=== PATIENT | male | born 1960 | race Hispanic/Latino ===

== ENCOUNTER 2017-11-14 12:52 | Inpatient (IN) | payer OTHER ==
[~2017-11-14] VITALS: Ht 175.3 cm; Wt 90.3 kg
[~2017-11-14 12:52] MED LIST: MOBIC15 M1 PO; PERCOCET 5-3251 EACH PO
[2017-11-14 13:26] LABS: ABSOLUTE BASOPHIL COUNT 0.1 /CUMM (0.0-0.2); ABSOLUTE EOSINOPHIL COUNT 0.1 /CUMM (0.0-0.7); ABSOLUTE GRANULOCYTE CT 4.8 /CUMM (1.4-6.5); ABSOLUTE LYMPH COUNT 2.6 /CUMM (1.2-3.4); ABSOLUTE MONOCYTE COUNT 0.6 /CUMM (0.10-0.60); BASOPHIL % 0.7 % (0.0-2.0); EOSINOPHIL % 1.3 % (0-5); GRANULOCYTE % 59.1 % (42.2-75.2); MEAN CORPUSCULAR HGB 23.3 PG (27.0-31.0); MEAN CORPUSCULAR HGB CONC 32.1 G/DL (33.0-37.0); MEAN CORPUSCULAR VOLUME 72.6 FL (80.0-94.0); MEAN PLATELET VOLUME 8.8 FL (7.4-10.4); PLATELET COUNT 239 /CUMM (130-400); RBC DISTRIBUTION WIDTH 14.9 % (11.5-14.5); WHITE BLOOD CELL COUNT 8.1 /CUMM (4.8-10.8)
--- NOTE | 2017-11-14 13:37 | RADIOLOGY REPORT ---
EXAMINATION: XR CHEST CLINICAL INFORMATION: Chest pain. COMPARISON: Chest x-ray dated 04/05/2016. TECHNIQUE: 2 views of the chest were obtained. FINDINGS: The cardiomediastinal silhouette is within normal limits in size. Lungs bilaterally are symmetrically expanded and clear. No focal consolidation, effusion or pneumothorax is seen. Bony structures are unremarkable. IMPRESSION: Unchanged appearance of the chest with no acute cardiopulmonary process seen.
--- NOTE | 2017-11-14 16:00 | ED CARDIAC/CP/PALPITATIONS ---
History of Present Illness General Chief Complaint: Chest Pain Stated Complaint: LEFT ARM STIFFNESS/NUMBNESS,"TINGLES AROUND HEART" Source: patient Exam Limitations: no limitations Vital Signs & Intake/Output Vital Signs & Intake/Output Vital Signs Date Time Temp Pulse Resp B/P B/P Pulse O2 O2 Flow FiO2 Mean Ox Delivery Rate 11/15 2053 80 18 180/100 11/15 1827 188/108 11/15 1741 79 210/110 11/15 1730 210/110 11/15 1424 98.4 77 20 180/96 97 Room Air 11/15 1041 58 168/100 11/15 0800 96 Room Air 11/15 0746 67 182/100 11/15 0616 98.1 60 22 186/100 96 11/15 0030 73 172/82 11/15 0014 71 186/88 11/15 0007 67 178/88 11/14 2258 98.3 86 22 184/110 97 Room Air 11/14 2250 Room Air 11/14 2223 81 18 180/86 99 Room Air 11/14 2110 69 20 180/100 100 Room Air ED Intake and Output 11/15 0000 11/14 1200 Intake Total Output Total Balance Patient 202 lb Weight Weight Bed scale Measurement Method Allergies Coded Allergies: NO KNOWN ALLERGIES (04/05/16) Reconcile Medications Ibuprofen 800 MG TABLET 1 TAB PO TID PRN WRIST PAIN (Reported) Lisinopril 40 MG TABLET 1 TAB PO DAILY HTN (Reported) Metformin HCl 1,000 MG TABLET 1 TAB PO BID DM (Reported) Triage Note: PT TO ED WITH C/O LEFT ARM NUMBNESS/TINGLING AND LEFT SIDED CP BEGINNING APPROX 10 AM TODAY. DENIES SOB. NEURO CHECK INTACT IN TRIAGE. INOCENCIOATTMilagros NEGATIVE. LUISITO STONE IN TRIAGE FOR INITIAL EVAL. Triage Nurses Notes Reviewed? yes Onset: Abrupt Duration: hour(s):, intermittent Timing: recent history Quality/Severity: moderate, sharp Radiation: no radiation Activities at Onset: none HPI: 57-year-old male comes into the emergency room for further evaluation of left- sided chest pain rating down his left arm with some associated tingling. Symptoms began this morning and has been intermittent all day. Patient reports that the chest pain is worse with exertion. Denies any cough. Denies any fever chills vomiting. Worse with movement at times. Patient reports that he has had this pain similarly in the past on and off but today was much more severe in nature. (Sergio Ackerman) Past History Travel History Traveled to [place] past 21 day No Medical History Any Pertinent Medical History? see below for history Cardiovascular: hypertension Respiratory: asthma Surgical History Surgical History: non-contributory Psychosocial History What is your primary language Frisian Tobacco Use: Current Daily Use Daily Tobacco Use Amount/Type: => 5 Cigarettes daily Family History Hx Contributory? No (Sergio Ackerman) Review of Systems Review of Systems Constitutional: Reports: no symptoms. EENTM: Reports: no symptoms. Respiratory: Reports: no symptoms. Cardiovascular: Reports: see HPI. GI: Reports: no symptoms. Genitourinary: Reports: no symptoms. Musculoskeletal: Reports: no symptoms. Skin: Reports: no symptoms. Neurological/Psychological: Reports: no symptoms. Hematologic/Endocrine: Reports: no symptoms. Immunologic/Allergic: Reports: no symptoms. All Other Systems: Reviewed and Negative (Sergio Ackerman) Physical Exam Physical Exam General Appearance: well developed/nourished, alert, awake, mild distress Head: atraumatic, normal appearance Eyes: Bilateral: normal appearance. Ears, Nose, Throat: normal ENT inspection, hearing grossly normal Neck: normal inspection Respiratory: normal breath sounds, no respiratory distress Cardiovascular: regular rate/rhythm Back: normal inspection Extremities: normal inspection Neurologic/Psych: awake, alert, oriented x 3 Skin: intact, normal color Core Measures ACS in differential dx? Yes CVA/TIA Diagnosis No Sepsis Present: No Sepsis Focused Exam Completed? No (Sergio Ackerman) Progress Differential Diagnosis: AMI, aortic dissection, costochondritis, musculoskeletal pain, myocarditis, pancreatitis, pericarditis, pneumonia, pneumothorax, pulmonary embolism, unstable angina Plan of Care: Orders Procedure Date/time Status Heart Healthy Diet 11/16 B Active CBC WITHOUT DIFFERENTIAL 11/16 599 Active BASIC ELECTROLYTES PLUS BUN&CR 11/16 599 Active Heart Healthy Diet 11/15 L Complete EKG 11/15 1300 Active ECHOCARDIOGRAM 11/16 799 Active TOTAL IRON BINDING CAPACITY 11/15 626 Complete LDH (LACT ACID DEHYDROGENASE) 11/15 626 Complete FERRITIN 11/15 626 Complete SERUM IRON 11/15 626 Complete TSH REFLEX 11/15 599 Complete MAGNESIUM 11/15 599 Complete LIPID PANEL 07/31 0600 Complete HAPTOGLOBIN 11/15 0600 Active GLYCOSYLATED HGB 11/15 0600 Complete CBC WITHOUT DIFFERENTIAL 11/15 0600 Complete BASIC ELECTROLYTES PLUS BUN&CR 11/15 0600 Complete URINE DRUGS OF ABUSE 11/15 0306 Active TROPONIN LEVEL 11/15 0000 Complete EKG 11/15 0000 Active Change service to 11/15 UNK Active Lab Add-on Test 11/15 UNK Active Hemoccult 11/15 UNK Active STRESS TEST W/NUCLEAR IMAGING 11/15 UNK Active Pathway - chart 11/14 2312 Active House Staff 11/14 2312 Active Weight 11/14 2242 Active Vital Signs 11/14 2242 Active Teach/Educate 11/14 224 Active Pain Treatment and Response 11/14 224 Active Nutritional Intake, Monitor 11/14 2241 Active Isolation 11/14 2241 Active Intake & Output 11/14 2241 Active Patient Care Conference 11/14 2241 Active Activity/Ambulation 11/14 224 Active FingerStick- Glucose 11/14 2221 Active VTE Mechanical Prophylaxis 11/14 UNK Active Current Medications Sig/Brittany Start time Last Medication Dose Stop Time Status Admin Hydralazine HCl 25 MG DAILY 11/16 09 AC (Apresoline) Omeprazole 20 MG DAILY AC 11/16 0700 AC (Prilosec) Labetalol HCl 200 MG BID 11/15 2100 AC 11/15 (Trandate-Normodyne 2054 200MG Tab) Hydralazine HCl 10 MG ONCE ONE 11/15 1730 CAN (Apresoline) 11/15 1731 Atorvastatin Calcium 40 MG 1700 11/15 1700 AC 11/15 (Lipitor) 1701 Albuterol Sulfate 2 PUF Q4 11/15 1000 AC 11/15 (Ventolin) 1043 Amlodipine Besylate 10 MG DAILY 11/15 0900 AC 11/15 (Norvasc) 1041 Aspirin 81 MG DAILY 11/15 0900 AC 11/15 (Aspirin) 0745 Lisinopril 40 MG DAILY 11/15 0900 AC 11/15 (Prinivil) 0746 Tiotropium [place] 1 PUF DAILY 11/15 0900 AC 11/15 (Spiriva) 1041 Heparin Sodium 5,000 UNIT Q8 11/15 0600 AC 11/15 (Porcine) 2101 Acetaminophen 1,000 MG Q6P PRN 11/14 2315 AC (Ofirmev) Laboratory Tests 11/15/17 0627: Anion Gap 11, Estimated GFR > 60, BUN/Creatinine Ratio 13.6, Hemoglobin A1c 8.4 H, Magnesium 2.0, Iron 189 H, TIBC 336, Ferritin 68.7, Lactate Dehydrogenase 425, Triglycerides 165 H, Cholesterol 219 H, LDL Cholesterol, Calc 140 H, HDL Cholesterol 46, Cholesterol/HDL Ratio 5 H, TSH &T3 &Free T4 Intrp 1.600, CBC w Diff NO MAN DIFF REQ, RBC 6.66 H, MCV 72.5 L, MCH 22.7 L, MCHC 31.4 L, RDW 15.1 H, MPV 9.5, Gran % 61.4, Lymphocytes % 29.0, Monocytes % 7.3, Eosinophils % 1.7, Basophils % 0.6, Absolute Granulocytes 5.5, Absolute Lymphocytes 2.6, Absolute Monocytes 0.6, Absolute Eosinophils 0.2, Absolute Basophils 0.1 11/15/17 0600: Haptoglobin Pending 11/15/17 0010: Troponin I 0.06 Diagnostic Imaging: Viewed by Me: Radiology Read. Discussed w/RAD: Radiology Read. Radiology Impression: PATIENT: JENIFER FYRE PRESENT AGE: 57 PATIENT ACCOUNT NO: [id number] : 61 LOCATION: [facility] ORDERING PHYSICIAN: Sergio JORGE SERVICE DATE: 11/14/17 EXAM TYPE : RAD - XRY-CHEST XRAY, TWO VIEWS EXAMINATION: XR CHEST CLINICAL INFORMATION: Chest pain. COMPARISON: Chest x-ray dated 04/05/2016. TECHNIQUE: 2 views of the chest were obtained. FINDINGS: The cardiomediastinal silhouette is within normal limits in size. Lungs bilaterally are symmetrically expanded and clear. No focal consolidation, effusion or pneumothorax is seen. Bony structures are unremarkable. IMPRESSION: Unchanged appearance of the chest with no acute cardiopulmonary process seen. DICTATED BY: Kay Jones MD DATE/TIME DICTATED:11/14/171329 DIRECTOR OF STRATEGIC PARTNERSHIPS:EDGAR DATE/TIME TRANSCRIBED:1329 CONFIDENTIAL, DO NOT COPY WITHOUT APPROPRIATE AUTHORIZATION. < Electronically signed in Other Vendor System> SIGNED BY: Kay Jones MD 11/14/171336 Initial ED EKG: normal sinus rhythm, rate (92), nonspecific ST T wave chg, t WAVE FLATTENING IN v5 AND v6 Repeat EKG: unchanged (NO SIGNIFICANT CHANGES) (Sergio Ackerman) Departure Departure Disposition: STILL A PATIENT Condition: Stable Clinical Impression Primary Impression: Chest pain with moderate risk for cardiac etiology Secondary Impressions: Hypertensive urgency Referrals: Andry Worley MD (PCP/Family) Departure Forms: Customer Survey General Discharge Information Admission Note Spoke With: Adriane Corona MD Documentation of Exam: Documentation of any treatments & extenuating circumstances including Concerns Regarding Discharge (functional status, medication knowledge or non-compliance, living conditions, etc.) that warrant an admission rather than observation: SERIAL troponins. Telemetry. Cardiac consultation. Repeat labs. . Medically unsafe for discharge. Repeat blood pressure medication. (Sergio Ackerman) Admission Note Documentation of Exam: Documentation of any treatments & extenuating circumstances including Concerns Regarding Discharge (functional status, medication knowledge or non-compliance, living conditions, etc.) that warrant an admission rather than observation: PA/SINGER AND UNLOADER Co-Sign Statement Statement: ED Attending supervision documentation- [X] I saw and evaluated the patient. I have also reviewed all the pertinent lab results and diagnostic results. I agree with the findings and the plan of care as documented in the PA's/SINGER AND UNLOADER's documentation. [] I have reviewed the ED Record and agree with the PA's/SINGER AND UNLOADER's documentation. [] Additions or exceptions (if any) to the PAs/SINGER AND UNLOADER's note and plan are summarized below: I saw and personally evaluated the patient. He has chest pain with severe elevation in his blood pressure. On my exam he was in no acute distress and comfortable. He is being admitted to the telemetry unit for further evaluation and care, IV antihypertensive medication. (Richar May DO) Critical Care Note Critical Care Note Critical Care Time: 30-74 min (45) (Sergio Ackerman)
--- NOTE | 2017-11-14 19:59 | History & Physical ---
DaviddeborahEmory quijanoh 11/14/171958: General Information and HPI MD Statement: I have seen and personally examined JENIFER FRYE and documented this H&P. The patient is a 57 year old M who presented with a patient stated chief complaint of [chest pain]. Source of Information: patient Exam Limitations: no limitations History of Present Illness: Mr. Frye is a 57-year-old gentleman with past medical history significant for hypertension, hnt-pivwwzm-whqlsxrnn diabetes mellitus, carpal tunnel syndrome, who has been admitted to the ER due to left-sided chest pain which radiates to his left arm. When we saw the patient in his room in the ER he was complaining about his dinner because he had already told the nurses he he does not want peanut butter and jelly sandwich and honeydew for dinner, but the Coumadin given anything else. He states that he has been under a lot of stress for a long time and today his chest pain has started from when he woke up at 5 AM. 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 He describes the pain as pressure which worsens with exertion, he had some nausea, but no vomiting. He also denies cough, chills, and fever. He reports that he takes ibuprofen for his carpal tunnel syndrome induced wrist pain, 800 mg 3 times daily. His last admission was in 2016 for similar symptoms, he is states that he did not see a client care coordinator for follow-up after being discharged. We explained to him that he might need coronary angiography-and also explained the procedure-and told him that he be n.p.o. from midnight. Past medical history: Hypertension, non-insulin dependent diabetes mellitus, carpal tunnel syndrome Surgical history: Abdominal hernia repair Family history: Nothing significant reported Social history: He smokes 1 pack of cigarettes each 2 week: Drinks socially and denies recreational drug use. 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 Imaging: Chest x-ray: Did not show any significant pathology EKG: Previous EKG: Was normal sinus rhythm, normal heart rate, no axis deviation, normal intervals, no ST segment change ER EKG: Was normal sinus rhythm, normal axis deviation, T-wave inversion in lead I and aVL, convex ST segment elevation in V1 and V2 Allergies/Medications Allergies: Coded Allergies: NO KNOWN ALLERGIES (04/05/16) Home Med list Amlodipine Besylate (Norvasc) 10 MG TABLET 1 TAB PO DAILY HTN Aspirin (Aspirin*) 81 MG TAB.CHEW 1 TAB PO DAILY HEART Atorvastatin Calcium 40 MG TABLET 1 TAB PO DAILY HEART Hydrochlorothiazide 25 MG TABLET 1 TAB PO DAILY HTN ONCE DAILY Ibuprofen 800 MG TABLET 1 TAB PO TID PRN WRIST PAIN (Reported) Labetalol HCl 200 MG TABLET 1 TAB PO BID HTN Lisinopril 40 MG TABLET 1 TAB PO DAILY HTN (Reported) Metformin HCl 1,000 MG TABLET 1 TAB PO BID DM (Reported) Omeprazole 20 MG CAPSULE.DR 1 TAB PO DAILY AC GASTRITIS Past History Travel History Traveled to [place] past 21 day No Medical History Cardiovascular: hypertension Respiratory: asthma Surgical History Surgical History: non-contributory Assessment/Plan Assessment: The patient is a 57-year-old male with past medical history significant for hypertension, fay-xremzgk-ubutyhrbn diabetes mellitus, smoking, who is overweight and has come to the ED with chief complaint of left-sided chest pain. Physical examination he was in no acute distress, he reports exertional chest pain, with radiation to his left arm. He is a smoker and has a history of diabetes mellitus, is overweight. His EKG showed T inversion in leads I and aVL plus convex ST segment inversion in V1 and V2. His blood pressure Patient was as high as 201/112. Troponin was checked 3 times so far which were all negative, 0.04, 0.05, 0.06. Lab data showed increased creatinine to 1.3 with a blood sugar of 199. Hypertensive emergency in this patient is probably the underlying cause of his sinus symptoms with active EKG changes by inducing overload on his heart causing demand ischemia. After controlling his blood pressure to 172/82 he did not have complaints of chest pain. He will be admitted to telemetry floor for close heart monitoring, serial EKG troponin checks, cardiology consult, and possibly angiography if client care coordinator orders it. So the patient will be n.p.o. from midnight. Problem list Hypertensive emergency EKG changes with negative troponin, probably because of demand ischemia Hypertension Overweight Prediabetes Carpal tunnel syndrome on 800 mg of ibuprofen 3 times daily As Ranked By This Provider Problem List: 1. Hypertensive urgency 2. Chest pain with moderate risk for cardiac etiology Core Measures/Misc (01/02) Acute Coronary Syndrome ACS Diagnosis: Yes Congestive Heart Failure Congestive Heart Failure Diagnosis No Cerebrovascular Accident CVA/TIA Diagnosis: No VTE (View Protocol) VTE Risk Factors Age>40 No Mechanical VTE Prophylaxis d/t N/A MechProphylax Ordered No VTE Pharm Prophylaxis d/t NA PharmProphylax ordered Sepsis (View protocol) Sepsis Present: No If YES complete Sepsis Event Note If YES complete Sepsis Event Note Rubén Bustillos MD 11/14/17 2304: Core Measures/Misc (01/02) Sepsis (View protocol) If YES complete Sepsis Event Note If YES complete Sepsis Event Note Resident Review Statement Resident Statement: examined this patient, discussed with pharmacy intern, agreed with pharmacy intern, reviewed EMR data (avail) Other Findings: History of present illness 57-year-old man with past medical history of hypertension, asthma, and non- insulin-dependent diabetes mellitus seen for evaluation of chest pain. Patient reports that he has not "felt well" and a "long time". Over the past several months he has had loss of energy. This morning he woke around 5 AM and went to work. Around 10 AM he noticed that he had some left arm numbness and tingling with new left-sided chest pain that was worse on exertion. Intermittently throughout the day he developed occasional lightheadedness with dizziness and some mild nausea. For persistence of the symptoms he came to the [place] ED. He was found to have markedly elevated blood pressure for which she received 20 mg of IV labetalol, 10 mg of IV hydralazine, full strength aspirin and 5 mg of IV metoprolol. Patient reports improvement of his chest pain after receiving these medications. Presently he feels well and other than his fatigue has no complaints. Review of systems He otherwise denies any headache, fever, chills, blurred/double vision, current lightheadedness or dizziness, current chest pain, palpitations, heartburn, shortness of breath, cough, nausea, vomiting, diarrhea, constipation, urinary complaints. Objective Vitals: Temp 97.1-97.9, HR 75-96, RR 16-18, BP 177-201/96-139, O2 96-100% on room air Physical exam -General: Well-developed, well-nourished middle-aged man in no acute distress -HEENT: NCAT, Jonathan, EOMI, anicteric sclera -Neck: Supple, no JVD, trachea midline -Cardio: Normal S1/S2 without murmurs/gallops/rubs; regular rate and rhythm -Pulmonary: Clear to auscultation bilaterally -Abdomen: Soft, nontender, nondistended, bowel sounds intact -Neuro: Awake and alert, cranial nerves II through XII grossly intact Labs/imaging/studies -CBC: WBC 8.1, hemoglobin 14.4, hematocrit 45.0, platelet 239, MCV 72.6 -BMP: Sodium 142, potassium 4.2, chloride 100, CO2 30, BUN 19, creatinine 1.3, anion gap 12, glucose 199 -LFT: Within normal limits -Miscellaneous: Troponin I 0.04/0.05, d-dimer unremarkable -EKG 04/05/16: Normal sinus rhythm -EKG 11/14/17 1308: Normal sinus rhythm with T-wave flattening I, AvL -EKG 11/14/17 1620: Normal sinus rhythm with ST elevation V1-V2 and T-wave flattening I, AvL -CXR: Unchanged appearance of the chest with no acute cardiopulmonary process seen. Assessment 57-year-old man with multiple medical problems significant for obesity and hypertension seen for evaluation of new onset chest pain with associated nausea and lightheadedness. Presently patient feels well after receiving multiple medications to control his blood pressure. Vital signs demonstrate a markedly elevated blood pressure. Labs including CBC, BMP, LFT, d-dimer, and troponin I are unremarkable except for creatinine 1.3. Serial EKGs demonstrated T-wave flattening with ST segment elevation and proximal precordial leads that resolved with improved control of patient's blood pressure. Chest x-ray is unremarkable. Clinically patient appears to have had chest pain secondary to hypertensive emergency with resolution/improvement of his EKG changes with blood pressure control. He does have some cardiovascular risk factors and may have underlying coronary artery disease. Patient is being admitted to the telemetry floor Problem list -Hypertensive urgency -Chest pain with EKG changes, likely due to elevated blood pressure -History of hypertension -"Prediabetic" -obesity -History of carpal tunnel syndrome Plan -Admit to telemetry floor -Telemetry monitoring -closely monitor blood pressure -Accu-Cheks 3 times daily before meals/at bedtime -Avoid nephrotoxic agents -start aspirin 81 mg p.o. daily -Continue home meds: Lisinopril -Hold oral hypoglycemics -Consult cardiology for chest pain with EKG changes and hypertension -urine toxicology -Trend troponin/EKG until peak or 3 negative sets -Transthoracic echocardiogram -Check lipid panel, HbA1c, and TSHR -Pain control with acetaminophen -N.p.o. after midnight for possible cardiac testing -DVT prophylaxis with subcutaneous heparin -Full code Chloe MENSAH,Adriane 11/15/172125: Review of Systems Review of Systems Constitutional: Reports: see HPI. Exam & Diagnostic Data Last 24 Hrs of Vital Signs/I&O Vital Signs Date Time Temp Pulse Resp B/P B/P Pulse O2 O2 Flow FiO2 Mean Ox Delivery Rate 11/15 2054 80 18 180/100 11/15 1827 188/108 11/15 1741 79 210/110 11/15 1730 210/110 11/15 1424 98.4 77 20 180/96 97 Room Air 11/15 1041 58 168/100 11/15 0800 96 Room Air 11/15 0746 67 182/100 11/15 0616 98.1 60 22 186/100 96 11/15 0030 73 172/82 11/15 0014 71 186/88 11/15 0007 67 178/88 11/14 2258 98.3 86 22 184/110 97 Room Air 11/14 2250 Room Air 11/14 2223 81 18 180/86 99 Room Air Intake & Output 11/15 1600 11/15 0800 11/15 0000 Intake Total 630 0 Output Total Balance 630 0 Intake, IV 150 Intake, Oral 480 0 Patient 91.739 kg Weight Weight Bed scale Measurement Method Core Measures/Misc (01/02) Sepsis (View protocol) If YES complete Sepsis Event Note If YES complete Sepsis Event Note Attending MD Review Statement Attending Statement Attending MD Statement: examined this patient, discuss w/resident/PA/WAGE CONCILIATOR, agreed w/resident/PA/WAGE CONCILIATOR
[2017-11-14] MEDS ORDERED: LISINOPRIL40 M1 PO (21:19)
[2017-11-14] MEDS ORDERED: METFORMIN HCL1000 M1 PO (21:19)
[2017-11-14 22:58] VITALS: BP 184/110
[2017-11-15] VITALS (9 sets, daily range): BP systolic 110–210; BP diastolic 70–110
--- NOTE | 2017-11-15 07:41 | PN- Housestaff ---
KrystalkendalFrank 11/15/17 0741: Subjective Follow-up For: Hypertesnive Urgency Subjective: Patient was seen and examined lying comfortably on his bed. No acute distress. No events on telemetry. Expressed disappointment with being asked same questions repeatedly by different teams. Denies any current palpitations, SOB, diaphoresis , numbness or tingling in hand. Review of Systems Constitutional: Reports: see HPI. Objective Last 24 Hrs of Vital Signs/I&O Vital Signs Date Time Temp Pulse Resp B/P B/P Pulse O2 O2 Flow FiO2 Mean Ox Delivery Rate 11/15 2225 76 18 150/86 11/15 2204 98.7 80 20 180/100 97 Room Air 11/15 2145 73 172/100 11/15 2054 80 18 180/100 11/15 1827 188/108 11/15 1741 79 210/110 11/15 1730 210/110 11/15 1424 98.4 77 20 180/96 97 Room Air 11/15 1041 58 168/100 11/15 0800 96 Room Air 11/15 0746 67 182/100 11/15 0616 98.1 60 22 186/100 96 Intake & Output 11/16 0800 08/ 0000 11/15 1600 Intake Total 120 630 Output Total Balance 120 630 Intake, IV 150 Intake, Oral 120 480 Patient 204 lb Weight Weight Bed scale Measurement Method Physical Exam General Appearance: Alert, Oriented X3, No Acute Distress Skin Temp/Moisture Exam: Warm/Dry Sepsis Skin Exam (color): Normal for Ethnicity HEENT: Atraumatic, PERRLA, EOMI Neck: Supple Cardiovascular: Normal S1, Normal S2 Lungs: Clear to Auscultation (B/L Expiratory Wheezing) Abdomen: Normal Bowel Sounds, Soft, No Tenderness Neurological: Normal Speech Extremities: No Edema, Normal Pulses Current Medications: Current Medications Sig/Brittany Start time Last Medication Dose Route Stop Time Status Admin Acetaminophen 1,000 MG Q6P PRN 11/14 2315 AC IV Albuterol Sulfate 2 PUF Q4 11/15 1000 AC 11/15 INH 1043 Amlodipine Besylate 10 MG DAILY 11/15 0900 AC 11/15 PO 1041 Aspirin 81 MG DAILY 11/15 0900 AC 11/15 PO 0745 Atorvastatin Calcium 40 MG 1700 11/15 1700 AC 11/15 PO 1701 Dextrose/Sodium 1,000 ML Q13H 11/15 1030 DC 11/15 Chloride IV 1040 Heparin Sodium 5,000 UNIT Q8 11/15 0600 AC 11/15 (Porcine) SC 2101 Hydralazine HCl 25 MG DAILY 11/16 09 AC PO Hydralazine HCl 10 MG ONCE ONE 11/15 1730 CAN PO 11/15 1731 Hydralazine HCl 25 MG ONCE ONE 11/15 1730 DC 11/15 PO 11/15 1731 1741 Labetalol HCl 200 MG BID 11/15 2100 AC 11/15 PO 205 Labetalol HCl 200 MG .STK-MED ONE 11/15 2046 DC PO 11/15 204 Lisinopril 40 MG DAILY 11/15 0900 AC 11/15 PO 07 Omeprazole 20 MG DAILY AC 11/16 07 AC PO Patient Medication 1 ED ONE ONE 11/15 1615 DC Teaching ED 11/15 1616 Tiotropium [place] 1 PUF DAILY 11/15 0900 AC 11/15 INH 1041 Last 24 Hrs of Lab/Sebastian Results Last 24 Hrs of Labs/Mics: Laboratory Tests 11/15/17 0627: Anion Gap 11, Estimated GFR > 60, BUN/Creatinine Ratio 13.6, Hemoglobin A1c 8.4 H, Magnesium 2.0, Iron 189 H, TIBC 336, Ferritin 68.7, Lactate Dehydrogenase 425, Triglycerides 165 H, Cholesterol 219 H, LDL Cholesterol, Calc 140 H, HDL Cholesterol 46, Cholesterol/HDL Ratio 5 H, TSH &T3 &Free T4 Intrp 1.600, CBC w Diff NO MAN DIFF REQ, RBC 6.66 H, MCV 72.5 L, MCH 22.7 L, MCHC 31.4 L, RDW 15.1 H, MPV 9.5, Gran % 61.4, Lymphocytes % 29.0, Monocytes % 7.3, Eosinophils % 1.7, Basophils % 0.6, Absolute Granulocytes 5.5, Absolute Lymphocytes 2.6, Absolute Monocytes 0.6, Absolute Eosinophils 0.2, Absolute Basophils 0.1 11/15/17 0600: Haptoglobin Pending Assessment/Plan Assessment: Mr. Augustine is a 57-year-old gentleman with past medical history significant for hypertension, awv-hatjodb-qgxtxhydy diabetes mellitus, carpal tunnel syndrome, who has been admitted to the ER due to left-sided chest pain which radiates to his left arm. He had a similar episode in 2016. Problem List: 1. Hypertensive Urgency 2. Chest Pain 2/2 ?? ACS 3. Microcytic anemia 4. Chronic Conditions (HTN, DM, Carpal Tunnel) - Continue linsinopril - Add amlodipine - Follow up echo - Repeat EKG in the am - Follow up with cardiology; waiting for recs - Start statin - Iron profile - Stool guaiac Low sodium diet Full Code DVT ppx Problem List: 1. Hypertensive urgency 2. Chest pain with moderate risk for cardiac etiology Pain Ratin Pain Location: Chest Wrists Pain Goal: Remain pain free Pain Plan: Pain Pathway Tomorrow's Labs & Rationales: CBC, BEP, Iron Panel Ene MENSAH,Mario 11/15/17 1055: Attending MD Review Statement Attending Statement Attending MD Statement: examined this patient, discuss w/resident/PA/WORKFORCE MANAGEMENT MANAGER, agreed w/resident/PA/WORKFORCE MANAGEMENT MANAGER, reviewed EMR data (avail), discussed with nursing, discussed with case mgmt, amended to note Attending Assessment/Plan: Patient seen and examined. Lying in bed. Not in acute distress. Was not happy to have team members rounding or having questions asked. Reported left-sided chest discomfort this morning. Denies shortness of breath. Denies palpitations. He is hemodynamically stable. No events on telemetry monitoring so far. On examination heart sounds are regular. Lungs are clear to auscultation bilaterally. No peripheral edema. Problems: 1. Hypertensive urgency; improving 2. Dyslipidemia 3. Chest pain 4. Microcytosis Plan: -Continue blood pressure control with lisinopril. Add amlodipine to his regimen. -Follow-up results of echocardiogram. -Follow-up with the cardiology service regarding further ischemic workup with a stress test. -Repeat EKG this morning. -Begin patient on the lipid-lowering agent. -Check stool guaiac. Check iron profile.
[2017-11-15 07:56] LABS: ABSOLUTE BASOPHIL COUNT 0.1 /CUMM (0.0-0.2); ABSOLUTE EOSINOPHIL COUNT 0.2 /CUMM (0.0-0.7); ABSOLUTE GRANULOCYTE CT 5.5 /CUMM (1.4-6.5); ABSOLUTE LYMPH COUNT 2.6 /CUMM (1.2-3.4); ABSOLUTE MONOCYTE COUNT 0.6 /CUMM (0.10-0.60); BASOPHIL % 0.6 % (0.0-2.0); EOSINOPHIL % 1.7 % (0-5); GRANULOCYTE % 61.4 % (42.2-75.2); HEMATOCRIT 48.3 % (42-52); MEAN CORPUSCULAR HGB 22.7 PG (27.0-31.0); MEAN CORPUSCULAR HGB CONC 31.4 G/DL (33.0-37.0); MEAN CORPUSCULAR VOLUME 72.5 FL (80.0-94.0); MEAN PLATELET VOLUME 9.5 FL (7.4-10.4); PLATELET COUNT 244 /CUMM (130-400); RBC DISTRIBUTION WIDTH 15.1 % (11.5-14.5); RED BLOOD CELL CT 6.66 /CUMM (4.70-6.10); WHITE BLOOD CELL COUNT 8.9 /CUMM (4.8-10.8)
--- NOTE | 2017-11-15 18:28 | Cons- Cardiology ---
General Information and HPI Consulting Request Date of Consult: 11/15/17 Requested By: Mario Luque MD History of Present Illness: Mr. Augustine is a 57 year old male with history of hypertension and diabetes. He presented to the ER for evaluation of a left shoulder numbness accompanied by a sharp poking sensation in his left chest. The discomfort occured while at work but does not appear to be exacerbated by physical activity or relieved by rest. It is not exacerbated by breathing deeply. There is no associated nausea, vomiting or diaphoresis. He also has some shortness of breath. He does feel lightheaded but denies palpitations. Finally, it should be noted that this patient was very hypertensive upon admission and has been taking large doses of ibuprofen. Allergies/Medications Allergies: Coded Allergies: NO KNOWN ALLERGIES (04/05/16) Home Med List: Ibuprofen 800 MG TABLET 1 TAB PO TID PRN WRIST PAIN (Reported) Lisinopril 40 MG TABLET 1 TAB PO DAILY HTN (Reported) Metformin HCl 1,000 MG TABLET 1 TAB PO BID DM (Reported) Review of Systems Review of Systems: A review of systems is unremarkable. Past History Travel History Traveled to [place] past 21 day No Medical History Blood Transfusion Hx: No Neurological: NONE EENT: NONE Cardiovascular: hypertension Respiratory: asthma Gastrointestinal: NONE Hepatic: NONE Renal: NONE Musculoskeletal: NONE Psychiatric: NONE Endocrine: NIDDM Blood Disorders: NONE Cancer(s): NONE CHARITY FUNDRAISER/Reproductive: NONE Surgical History Surgical History: non-contributory Psychosocial History Where Do You Live? Home Services at Home: None Smoking Status: Current Everyday Smoker Exam & Diagnostic Data Vital Signs and I&O Vital Signs Date Time Temp Pulse Resp B/P B/P Pulse O2 O2 Flow FiO2 Mean Ox Delivery Rate 11/15 1741 79 210/110 11/15 1424 98.4 77 20 180/96 97 Room Air 11/15 1041 58 168/100 11/15 0800 96 Room Air 11/15 0746 67 182/100 11/15 0616 98.1 60 22 186/100 96 11/15 0030 73 172/82 11/15 0014 71 186/88 11/15 0007 67 178/88 11/14 2258 98.3 86 22 184/110 97 Room Air 11/14 2250 Room Air 11/14 2223 81 18 180/86 99 Room Air 11/14 2110 69 20 180/100 100 Room Air 11/14 1956 77 20 182/100 98 Room Air 11/14 1902 97.9 75 18 198/96 11/14 1855 198/96 Intake & Output 11/15 0000 11/14 1600 11/14 0811/14 0000 Intake Total 630 0 Output Total Balance 630 0 Intake, IV 150 Intake, Oral 480 0 Patient 202 lb 215 lb Weight Weight Bed scale Reported by Patient Measurement Method Physical Exam: General: WD/WN male in NAD; alert and oriented x 3 HEENT: NC/AT, PERRL, EOMI Neck: no JVD, no carotid bruit Heart: RRR w/o murmur Lungs: clear bilaterally ABdomen: soft, NT, +ve bowel sounds Extremities: no edema Assessment/Plan Assessment/Plan * This patient has multiple risk factors for coronary artery disease. His symptoms are somewhat atypical for ischemia however. I have a moderate suspicion of myocardial ischemia and this patient should therefore be risk stratified with a treadmill nuclear stress test prior to discharge. At present, he has ruled out for an MA and feels somewhat improved. A musculoskeletal discomfort or radiculopathy needs to be included in the differential. In addition, subendocardial ischemia from severe hypertension needs to be considered. * This patient's hypertension may be exacerbated by NSAIDS which may also cause a gastritis. Stop his NSAIDS and begin a PPI. Lower blood pressure by beginning Labetolol 200mg BID. Also add HCTZ 25mg daily. Continue his ACEI. He should also be on a low sodium diet. * Obtain an echocardiogram. * Obtain a treadmill nuclear stress test. * Begin aspirin 81mg daily. Continue his statin. Consult Acknowledgment - Thank you for your consult request.
[2017-11-16 06:40] VITALS: BP 130/86
[2017-11-16 08:01] LABS: ABSOLUTE BASOPHIL COUNT 0.1 /CUMM (0.0-0.2); ABSOLUTE EOSINOPHIL COUNT 0.2 /CUMM (0.0-0.7); ABSOLUTE GRANULOCYTE CT 6.3 /CUMM (1.4-6.5); ABSOLUTE LYMPH COUNT 3.4 /CUMM (1.2-3.4); ABSOLUTE MONOCYTE COUNT 0.6 /CUMM (0.10-0.60); BASOPHIL % 0.6 % (0.0-2.0); EOSINOPHIL % 1.5 % (0-5); GRANULOCYTE % 59.5 % (42.2-75.2); HEMATOCRIT 48.3 % (42-52); MEAN CORPUSCULAR HGB 23.1 PG (27.0-31.0); MEAN CORPUSCULAR HGB CONC 32.1 G/DL (33.0-37.0); MEAN PLATELET VOLUME 9.4 FL (7.4-10.4); PLATELET COUNT 262 /CUMM (130-400); RBC DISTRIBUTION WIDTH 15.2 % (11.5-14.5); RED BLOOD CELL CT 6.71 /CUMM (4.70-6.10); WHITE BLOOD CELL COUNT 10.6 /CUMM (4.8-10.8)
--- NOTE | 2017-11-16 09:04 | PN- Housestaff ---
Frank Johnson 11/16/17 0903: Subjective Follow-up For: Hypertensive urgency Tele-Events Since Last Visit: Sinus rhythm 64-81 Subjective: Patient was seen lying in bed today. No acute events overnight on telemetry. After getting his dose of labetalol patient reports an episode of diaphoresis and subsequently had some concerns taking this medication. Attending spoke to patient and clarified concerns. Patient reports he is feeling better and has no other complaints. Review of Systems Constitutional: Reports: see HPI. Objective Last 24 Hrs of Vital Signs/I&O Vital Signs Date Time Temp Pulse Resp B/P B/P Pulse O2 O2 Flow FiO2 Mean Ox Delivery Rate 11/16 1017 98.7 71 150/82 11/16 0850 71 150/82 11/16 0850 71 150/82 11/16 0800 Room Air Room Air 11/16 0640 98.7 65 18 130/86 99 Room Air 11/15 2225 76 18 150/86 11/15 2204 98.7 80 20 180/100 97 Room Air 11/15 2145 73 172/100 11/15 2054 80 18 180/100 11/15 1827 188/108 11/15 1741 79 210/110 11/15 1730 210/110 Intake & Output 11/16 1600 11/16 0800 11/16 0000 Intake Total 120 120 Output Total Balance 120 120 Intake, Oral 120 120 Patient 204 lb Weight Weight Bed scale Measurement Method Physical Exam General Appearance: Alert, Oriented X3, Cooperative, No Acute Distress Skin Temp/Moisture Exam: Warm/Dry Sepsis Skin Exam (color): Normal for Ethnicity HEENT: Atraumatic, PERRLA, EOMI Neck: Supple, No JVD Cardiovascular: Regular Rate, Normal S1, Normal S2 Lungs: B\L wheezing Abdomen: Soft, No Tenderness, No Hepatospenomegaly Neurological: Normal Speech Extremities: No Cyanosis, No Edema, Normal Pulses Current Medications: Current Medications Sig/Brittany Start time Last Medication Dose Route Stop Time Status Admin Acetaminophen 1,000 MG Q6P PRN 11/14 2315 AC IV Albuterol Sulfate 2 PUF Q4 11/15 1000 AC 11/16 INH 1018 Amlodipine Besylate 10 MG DAILY 11/15 0900 AC 11/16 PO 0850 Aspirin 81 MG DAILY 11/15 0900 AC 11/16 PO 0850 Atorvastatin Calcium 40 MG 1700 11/15 1700 AC 11/15 PO 1701 Heparin Sodium 5,000 UNIT Q8 11/15 0600 AC 11/16 (Porcine) SC 1428 Hydralazine HCl 25 MG DAILY 11/16 0900 CAN PO Hydralazine HCl 10 MG ONCE ONE 11/15 1730 CAN PO 11/15 1731 Hydralazine HCl 25 MG ONCE ONE 11/15 1730 DC 11/15 PO 11/15 1731 1741 Hydrochlorothiazide 25 MG DAILY 11/16 0900 AC 11/16 PO 1017 Labetalol HCl 200 MG BID 11/15 2100 AC 11/16 PO 1017 Labetalol HCl 200 MG .STK-MED ONE 11/15 2046 DC PO 11/15 204 Lisinopril 40 MG DAILY 11/15 0900 AC 11/16 PO 0850 Omeprazole 20 MG DAILY AC 11/16 0700 AC 11/16 PO 0619 Patient Medication 1 ED ONE ONE 11/15 1615 DC Teaching ED 11/15 1616 Tiotropium [place] 1 PUF DAILY 11/15 0900 AC 11/16 INH 0849 Last 24 Hrs of Lab/Sebastian Results Last 24 Hrs of Labs/Mics: Laboratory Tests 11/16/17 0617: Anion Gap 12, Estimated GFR > 60, BUN/Creatinine Ratio 16.7, CBC w Diff NO MAN DIFF REQ, RBC 6.71 H, MCV 72.0 L, MCH 23.1 L, MCHC 32.1 L, RDW 15.2 H, MPV 9.4, Gran % 59.5, Lymphocytes % 32.5, Monocytes % 5.9, Eosinophils % 1.5, Basophils % 0.6, Absolute Granulocytes 6.3, Absolute Lymphocytes 3.4, Absolute Monocytes 0.6, Absolute Eosinophils 0.2, Absolute Basophils 0.1 Assessment/Plan Assessment: Mr. Augustine is a 57-year-old gentleman with past medical history significant for hypertension, aln-pmhghuj-qbbenjecg diabetes mellitus, carpal tunnel syndrome, who has been admitted to the ER due to left-sided chest pain which radiates to his left arm. He had a similar episode in 2016. Blood pressure has improved and hypertensive urgency has resolved. No events on telemetry overnight. Patient expressed wish to change PCP to Shahzad Edmonds. Problem list: 1. Microcytosis 2. Chronic conditions (hypertension, HLD, T2DM, carpal tunnel, asthma) Plan: -Continue lisinopril 40 mg daily -Continue labetalol 200 mg twice daily -Continue HCTZ 25 mg daily -Continue aspirin 81 mg daily -Continue atorvastatin 40 mg daily -Continue omeprazole 20 mg daily -N.p.o. tonight for stress echocardiogram tomorrow -Avoid NSAIDs -Continue Ventolin and Spiriva daily titrate as needed -Follow-up microcytosis outpatient -Follow-up carpal tunnel outpatient -Follow-up blood glucose and A1c outpatient -Follow-up triglycerides, LDL cholesterol outpatient Heart healthy diet Full code DVT prophylaxis: Heparin subcu Problem List: 1. Hypertensive urgency Pain Ratin Pain Location: None Pain Goal: Remain pain free Pain Plan: This crease pain pathway NSAIDs hypertension so since tablet twice a hospitalist induced nephritis likely could come out of more days of more reviewed. Tomorrow's Labs & Rationales: BEP, CBC Ene MENSAH,Mario 11/16/17 1057: Attending MD Review Statement Attending Statement Attending MD Statement: examined this patient, discuss w/resident/PA/PIPE COVERER AND INSULATOR, agreed w/resident/PA/PIPE COVERER AND INSULATOR, discussed with family, reviewed EMR data (avail), discussed with nursing, discussed with case mgmt, amended to note Attending Assessment/Plan: Patient seen and examined. No events on telemetry overnight. He reported being diaphoretic last night. He has ability to the level of his blood pressure. He was concerned about this and initially declined to use this morning's dose of labetalol. Discussing with him he felt much better and agreed to take the medications. Blood pressure has improved since admission. In addition to his lisinopril which he takes at home he has been started on labetalol, amlodipine and hydrochlorothiazide. Blood pressure is much better this morning. She will be discharged on this regimen. He is requesting to be referred to a new primary care provider and will be referred to the [facility] outpatient clinic. He will require further workup for his chest pain. He denies any symptoms amount. It is unclear whether the symptoms are presented with a cardiac history of allergy or musculoskeletal in nature. Nuclear stress test today will help determine the results of cardiac etiology. If findings are negative he may be discharged home today. He has been started on a PPI. He is found to have mild microcytosis on his labs. Hemoglobin level is within normal limits. Iron profile is also within normal limits. Recommend follow-up with his PCP as an outpatient.
--- NOTE | 2017-11-16 10:36 | Patient Discharge Instructions ---
Discharge Instructions General Discharge Information You were seen/treated for: Hypertensive Urgency Watch for these problems: Please return to the ER in case of any chest pain, shortness of breath, headcahes, blurry vision or weakness/numbness. Special Instructions: Please follow up with your PCP and paper supervisor within a week after discharge. Diet Continue normal diet: Yes Recommended Diet: Heart Healthy Activity Full Activity/No Limits: Yes Acute Coronary Syndrome Inclusion Criteria At DC or during hospital stay patient has or had the following: ACS DIAGNOSIS No Discharge Core Measures Meds if any: Prescribed or Continued at Discharge Meds if any: NOT Prescribed or Continued at Discharge Congestive Heart Failure Inclusion Criteria At DC or during hospital stay patient has or had the following: CHF DIAGNOSIS No Discharge Core Measures Meds if any: Prescribed or Continued at Discharge Meds if any: NOT Prescribed or Continued at Discharge Cerebrovascular accident Inclusion Criteria At DC or during hospital stay patient has or had the following: CVA/TIA Diagnosis No Discharge Core Measures Meds if any: Prescribed or Continued at Discharge Meds if any: NOT Prescribed or Continued at Discharge Venous thromboembolism Inclusion Criteria VTE Diagnosis No VTE Type NONE VTE Confirmed by (Test) NONE Discharge Core Measures - Per Current guidelines, there needs to be overlap - treatment for the first 5 days of Warfarin therapy. - If discharged on Warfarin prior to 5 days of - overlap therapy, the patient will need to be - assessed for post discharge needs including - *Post discharge parental anticoagulation - *Warfarin and/or parental anticoagulation education - *Follow up date to check INR post discharge At least 5 days overlap therapy as Inpatient No Meds if any: Prescribed or Continued at Discharge Note: Overlap Therapy is Warfarin and Anticoagulant Meds if any: NOT Prescribed or Continued at Discharge
--- NOTE | 2017-11-16 10:41 | Discharge Summary ---
Visit Information Visit Dates Admission Date: 11/14/17 Discharge Date: 11/17/17 Hospital Course Course Attending Physician: Mario Luque MD Primary Care Physician: Andry Worley MD Allergies: Coded Allergies: NO KNOWN ALLERGIES (04/05/16) Disposition Summary Disposition Principal Diagnosis: Hypertensive Urgency Additional Diagnosis: Microcytosis DMT2 Carpal Tunnel Discharge Instructions Medications at Discharge Discharge Medications: Continue taking these medications: Lisinopril (Lisinopril) 40 MG TABLET 1 Tablet ORAL DAILY Instructions: .. Comments: Last Taken: 11/17/17 Time: 1:00 PM Metformin HCl (Metformin HCl) 1,000 MG TABLET 1 Tablet ORAL TWICE DAILY Instructions: .. Comments: NOT GIVEN Start taking the following new medications: Omeprazole (Omeprazole) 20 MG CAPSULE.DR 1 Tablet ORAL DAILY BEFORE BREAKFAST Qty = 30 No Refills Instructions: . Comments: Last Taken: 11/17/17 Time: 6:00 AM Hydrochlorothiazide (Hydrochlorothiazide) 25 MG TABLET 1 Tablet ORAL DAILY Qty = 30 No Refills Instructions: .ONCE DAILY Comments: Last Taken: 11/17/17 Time: 1:OO PM Aspirin (Aspirin*) 81 MG TAB.CHEW 1 Tablet ORAL DAILY Qty = 30 No Refills Instructions: . Comments: Last Taken: 11/17/17 Time: 1:00 PM Amlodipine Besylate (Norvasc) 10 MG TABLET 1 Tablet ORAL DAILY Qty = 30 No Refills Instructions: . Comments: Last Taken: 11/17/17 Time: 1:OO PM Labetalol HCl (Labetalol HCl) 200 MG TABLET 1 Tablet ORAL TWICE DAILY Qty = 60 No Refills Instructions: . Comments: Last Taken: 11/17/17 Time: 1:00 PM Atorvastatin Calcium (Atorvastatin Calcium) 40 MG TABLET 1 Tablet ORAL DAILY Qty = 30 No Refills Instructions: . Comments: Last Taken: 11/17/17 Time: 4:00 PM
[2017-11-16] MEDS ORDERED: LABETALOL HCL200 M1 PO (10:48)
[2017-11-16] MEDS ORDERED: NORVASC10 M1 PO (10:48)
[2017-11-16] MEDS ORDERED: ATORVASTATIN CA40 M1 PO (10:48)
[2017-11-16] MEDS ORDERED: ASPIRIN81 M4 PO (10:48)
[2017-11-16] MEDS ORDERED: OMEPRAZOLE20 M2 PO (10:48)
[2017-11-16] MEDS ORDERED: HYDROCHLOROTHIA25 M1 PO (10:48)
[2017-11-16 14:49] VITALS: BP 138/80
--- NOTE | 2017-11-16 17:34 | PN- Cardiology ---
Subjective Subjective: * Patient is feeling better and is aclimating to his new drug regimen. * Much improved blood pressure. Objective Vital Signs and I&Os Vital Signs Date Time Temp Pulse Resp B/P B/P Pulse O2 O2 Flow FiO2 Mean Ox Delivery Rate 11/16 1449 98.4 75 20 138/80 96 Room Air 11/16 1017 98.7 71 150/82 11/16 0850 71 150/82 11/16 0850 71 150/82 11/16 0800 Room Air Room Air 11/16 0640 98.7 65 18 130/86 99 Room Air 11/15 2225 76 18 150/86 11/15 2204 98.7 80 20 180/100 97 Room Air 11/15 2145 73 172/100 11/15 2054 80 18 180/100 11/15 1827 188/108 11/15 1741 79 210/110 Intake & Output 11/16 1600 11/16 0800 11/16 0000 11/15 1600 11/15 0800 11/15 0000 Intake Total 500 120 120 630 0 Output Total Balance 500 120 120 630 0 Intake, IV 150 Intake, Oral 500 120 120 480 0 Patient 204 lb 202 lb Weight Weight Bed scale Bed scale Measurement Method Physical Exam: General: WD/WN male in NAD; alert and oriented x 3 HEENT: NC/AT, PERRL, EOMI Neck: no JVD, no carotid bruit Heart: RRR w/o murmur Lungs: clear bilaterally ABdomen: soft, NT, +ve bowel sounds Extremities: no edema Assessment/Plan Assessment/Plan * This patient has multiple risk factors for coronary artery disease. His symptoms are somewhat atypical for ischemia however. I have a moderate suspicion of myocardial ischemia and this patient should therefore be risk stratified with a treadmill nuclear stress test prior to discharge. At present, he has ruled out for an MO and feels somewhat improved. A musculoskeletal discomfort or radiculopathy needs to be included in the differential. In addition, subendocardial ischemia from severe hypertension needs to be considered. * This patient's hypertension may be exacerbated by NSAIDS which may also cause a gastritis. Stop his NSAIDS and begin a PPI. Continue Labetolol 200mg BID, HCTZ 25mg daily, Lisinopril 40mg daily and Amlodipine 10mg daily. He should also be on a low sodium diet. * Obtain an echocardiogram. * Obtain a treadmill nuclear stress test. * Continue aspirin 81mg daily. Continue his statin. Continue telemetry? Yes
[2017-11-16 22:13] VITALS: BP 158/72
[2017-11-17 06:51] VITALS: BP 132/80
--- NOTE | 2017-11-17 07:34 | ECHOCARDIOGRAM REPORT ---
JENIFER FRYE Age: 57 : 1960 Gender: M Exam Date: 11/16/2017 18:57 Exam Location: [facility] Ht (in): 69 Wt (lb): 202 BSA: 2.14 BP: 138 / 80 Ordering Physician: Rubén Bustillos MD Referring Physician: Tavo Jones MD, PhD Technologist: Savanna Shahid [facility] Room Number: 180-02 Indications: Chest pain Rhythm: Sinus Technical Quality: good FINDINGS Left Ventricle Normal left ventricular size with mild left ventricular hypertrophy. Low normal systolic function with no obvious regional wall motion abnormalities. Diastolic filling pattern is consistent with impaired LV relaxation. The ejection fraction is visually estimated at 50%. Right Ventricle The right ventricle is normal in size and function. Right Atrium The right atrium is normal in size. Left Atrium The left atrium is normal in size. The interatrial septum is intact. Mitral Valve The mitral valve is normal in structure and function. There is trace mitral regurgitation. Aortic Valve Structurally normal aortic valve without significant sclerosis or stenosis. There is no aortic regurgitation. Tricuspid Valve The tricuspid valve is normal in structure and function. There is trace tricuspid regurgitation. Pulmonary artery systolic pressure is normal. Pulmonic Valve Structurally normal pulmonic valve. There is trace pulmonic regurgitation. Pericardium Normal pericardium without effusion. No pleural effusion. Great Vessels Normal aortic root dimension. The aortic arch and great vessels are well seen and are normal. CONCLUSIONS 1. Low normal EF of 50% with impaired LV relaxation. 2. Mild left ventricular hypertrophy. 3. Trace mitral regurgitation. 4. Trace tricuspid regurgitation. 5. Trace pulmonic regurgitation. Tavo Jones M.D. (Electronically Signed) Final Date: 17 November 2017 07:33 MEASUREMENTS (Male / Female) Normal Values 2D ECHO LV Diastolic Diameter PLAX 4.5 cm 4.2 - 5.9 / 3.9 - 5.3 cm LV Systolic Diameter PLAX 3.5 cm 2.1 - 4.0 cm LV Fractional Shortening PLAX 22.2 % 25 - 46 % LV Ejection Fraction 2D Teich 45.0 % IVS Diastolic Thickness 1.2 cm LVPW Diastolic Thickness 1.2 cm LV Relative Wall Thickness 0.5 RV Internal Dim ED PLAX 3.1 cm 1.9 - 3.8 cm LVOT Diameter 2.2 cm Aortic Root Diameter 3.0 cm LA Systolic Diameter LX 3.7 cm 3.0 - 4.0 / 2.7 - 3.8 cm LV Ejection Fraction MOD BP 43.9 % >= 55 % LV Diastolic Length 4C 7.8 cm 6.9 - 10.3 cm LV Diastolic Area 4C 27.9 cm LV Diastolic Volume MOD 4C 84.0 cm LV Ejection Fraction MOD 4C 50.0 % LV Stroke Volume MOD 4C 42.0 cm LV Systolic Length 4C 6.8 cm LV Systolic Area 4C 18.1 cm LV Systolic Volume MOD 4C 42.0 cm LV Ejection Fraction MOD 2C 34.7 % LV Diastolic Volume 4C AL 85.4 cm 85 - 139 / 69 - 109 cm LV Systolic Volume 4C AL 41.1 cm LV Ejection Fraction 4C AL 51.9 % LV Stroke Volume 4C AL 44.3 cm LV Ejection Fraction 2C AL 35.4 % LA Volume 41.0 cm 18 - 58 / 22 - 52 cm Ascending Aorta Diameter 3.4 cm DOPPLER AV Peak Velocity 135.0 cm/s AV Peak Gradient 7.3 mmHg AV Mean Velocity 96.1 cm/s AV Mean Gradient 4.0 mmHg AV Velocity Time Integral 24.4 cm LVOT Peak Velocity 137.0 cm/s LVOT Peak Gradient 7.5 mmHg LVOT Mean Velocity 80.6 cm/s LVOT Mean Gradient 3.0 mmHg LVOT Velocity Time Integral 20.0 cm LVOT Stroke Volume 76.0 cm AV Area Cont Eq vti 3.1 cm AV Area Cont Eq pk 3.9 cm MV Peak Velocity 85.4 cm/s MV Peak Gradient 2.9 mmHg MV Mean Velocity 45.4 cm/s MV Mean Gradient 1.0 mmHg Mitral E Point Velocity 59.7 cm/s Mitral A Point Velocity 80.9 cm/s Mitral E to A Ratio 0.7 MV PHT Velocity 65.6 cm/s MV Deceleration [place] 168.0 cm/s MV Pressure Half Time 117.1 ms MV Area PHT 1.9 cm MV Deceleration Time 299.0 ms TR Peak Velocity 59.1 cm/s TR Peak Gradient 1.4 mmHg Right Atrial Pressure 10.0 mmHg Pulmonary Artery Systolic Pressure 11.4 mmHg Right Ventricular Systolic Pressure 11.4 mmHg PV Peak Velocity 114.0 cm/s PV Peak Gradient 5.2 mmHg PV Mean Velocity 81.7 cm/s PV Mean Gradient 3.0 mmHg PV Velocity Time Integral 22.8 cm LV E' Lateral Velocity 6.3 cm/s Mitral E to LV E' Lateral Ratio 9.5 LV E' Septal Velocity 5.0 cm/s Mitral E to LV E' Septal Ratio 12.0
--- NOTE | 2017-11-17 09:58 | PN- Housestaff ---
Subjective Follow-up For: Hypertensive urgency Tele-Events Since Last Visit: NSR 63 - 90, No acute events Subjective: Patient was seen and examined in room today. He is upset over being kept NPO and not having a stress test completed yesterday. Patient denies any acute events overnight. No acute events on telemonitor. Patient denies any new onset symptoms. Patient slept comfortably. Review of Systems Constitutional: Reports: see HPI. Objective Last 24 Hrs of Vital Signs/I&O Vital Signs Date Time Temp Pulse Resp B/P B/P Pulse O2 O2 Flow FiO2 Mean Ox Delivery Rate 11/17 1434 98.1 81 20 120/80 98 Room Air 11/17 1231 82 122/70 08 1230 82 122/70 11/17 1230 82 122/70 11/17 0651 97.8 76 18 132/80 97 Room Air Intake & Output 11/18 0800 11/18 0000 11/17 1600 Intake Total 800 Output Total Balance 800 Intake, Oral 800 Number 1 Bowel Movements Physical Exam General Appearance: Alert, Oriented X3, Cooperative, No Acute Distress Skin Temp/Moisture Exam: Warm/Dry Sepsis Skin Exam (color): Normal for Ethnicity HEENT: Atraumatic, PERRLA, EOMI Neck: Supple, No JVD Cardiovascular: Regular Rate, Normal S1, Normal S2 Lungs: B/L Diffuse Wheezing Abdomen: Normal Bowel Sounds, Soft, No Tenderness Neurological: Normal Gait, Normal Speech Extremities: No Cyanosis, No Edema, Normal Pulses Current Medications: Current Medications Sig/Brittany Start time Last Medication Dose Route Stop Time Status Admin Acetaminophen 650 MG Q6-PRN PRN 11/17 1300 DCD PO Acetaminophen 1,000 MG Q6P PRN 11/14 2315 DCD IV Albuterol Sulfate 2 PUF Q4 11/15 1000 DCD 11/17 INH 1554 Amlodipine Besylate 10 MG DAILY 11/15 0900 DCD 11/17 PO 1230 Aspirin 81 MG DAILY 11/15 0900 DCD 11/17 PO 1229 Atorvastatin Calcium 40 MG 1700 11/15 1700 DCD 11/17 PO 1556 Heparin Sodium 5,000 UNIT Q8 11/15 0600 DCD 11/17 (Porcine) SC 1419 Hydrochlorothiazide 25 MG DAILY 11/16 09 DCD 11/17 PO 1229 Labetalol HCl 200 MG BID 11/15 2100 DCD 11/17 PO 1231 Lisinopril 40 MG DAILY 11/15 0900 DCD 11/17 PO 1230 Omeprazole 20 MG DAILY AC 11/16 0700 DCD 11/17 PO 0556 Tiotropium [place] 1 PUF DAILY 11/15 0900 DCD 11/17 INH 1232 Assessment/Plan Assessment: Mr. Augustine is a 57-year-old gentleman with past medical history significant for hypertension, [id number] diabetes mellitus, carpal tunnel syndrome, who has been admitted to the ER due to left-sided chest pain which radiates to his left arm. He had a similar episode in 2016. Blood pressure has improved and hypertensive urgency has resolved. No events on telemetry overnight. Discharge instructions will explain medications and how to change pt's PCP to Shahzad Edmonds. 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 D/C will be based on stress test results today. Problem list: 1. Microcytosis 2. Chronic conditions (hypertension, HLD, T2DM, carpal tunnel, asthma) Plan: -Continue lisinopril 40 mg daily -Continue labetalol 200 mg twice daily -Continue HCTZ 25 mg daily -Continue aspirin 81 mg daily -Continue atorvastatin 40 mg daily -Continue omeprazole 20 mg daily -Avoid NSAIDs -Continue Ventolin and Spiriva daily titrate as needed -Follow-up microcytosis outpatient -Follow-up carpal tunnel outpatient -Follow-up blood glucose and A1c outpatient -Follow-up triglycerides, LDL cholesterol outpatient Heart healthy diet Full code DVT prophylaxis: Heparin subcu Problem List: 1. Hypertensive urgency Pain Ratin Pain Location: None Pain Goal: Remain pain free Pain Plan: Tylenol, do not use NSAIDs Tomorrow's Labs & Rationales: CBC, BEP
[2017-11-17 14:34] VITALS: BP 120/80
--- NOTE | 2017-11-17 16:52 | NUCLEAR MEDICINE REPORT ---
EXAMINATION: NM MYOCARDIAL PERFUSION CLINICAL INFORMATION: Hypertension COMPARISON: None TECHNIQUE: 21.9 mCi technetium Myoview for stress imaging and 40 mCi technetium Myoview for rest imaging. Coronal, axial and sagittal planes. FINDINGS: The slice imaging stress images demonstrate mild intensity moderate in size inferior defect. This may represent attenuation. There is also a small-sized mild intensity defect involving the proximal superior septal region. The rest images demonstrate the inferior defect to be fixed. The proximal superior septal defect appears to be predominantly fixed. This may also be artifactual. Review of wall motion demonstrates global hypokinesis here. There is more focal hypokinesis of the septal region. The calculated left ejection fraction is 33%. IMPRESSION: Global hypokinesis with more focal hypokinesis in the inferoseptum. Depressed calculated ventricular ejection fraction is 33% There is no large reversible defect here. There is a mild fixed inferior defect which may be attenuation and mild proximal superior septal defect which appears predominantly fixed. Correlation needs to be made clinically.
--- NOTE | 2017-11-17 18:02 | PN- Cardiology ---
Subjective Subjective: * No chest discomfort or shortness of breath. Patient feels much improved. * sinus rhythm * Low normal EF on echo. Objective Vital Signs and I&Os Vital Signs Date Time Temp Pulse Resp B/P B/P Pulse O2 O2 Flow FiO2 Mean Ox Delivery Rate 11/17 1434 98.1 81 20 120/80 98 Room Air 11/17 1231 82 122/70 11/17 1230 82 122/70 11/17 1230 82 122/70 11/17 0651 97.8 76 18 132/80 97 Room Air 11/17 0000 Room Air 11/16 2230 77 106/68 11/16 2213 98.5 77 18 158/72 100 Room Air Intake & Output 11/17 1600 11/17 0000 11/16 1600 11/16 0000 Intake Total 800 60 550 500 120 120 Output Total Balance 800 60 550 500 120 120 Intake, Oral 800 60 550 500 120 120 Number 1 Bowel Movements Patient 199 lb 204 lb Weight Weight Bed scale Bed scale Measurement Method Physical Exam: General: WD/WN male in NAD; alert and oriented x 3 HEENT: NC/AT, PERRL, EOMI Neck: no JVD, no carotid bruit Heart: RRR w/o murmur Lungs: clear bilaterally ABdomen: soft, NT, +ve bowel sounds Extremities: no edema Assessment/Plan Assessment/Plan * This patient has multiple risk factors for coronary artery disease. His symptoms are somewhat atypical for ischemia however. He does have a low normal EF but his stress test is negative for ischemia. I suspect his chest pain was due to poorly controlled blood pressure. At present, he has ruled out for an HI and feels somewhat improved. * This patient's hypertension may be exacerbated by NSAIDS which may also cause a gastritis. Stop his NSAIDS and begin a PPI. Continue Labetolol 200mg BID, HCTZ 25mg daily, Lisinopril 40mg daily and Amlodipine 10mg daily. He should also be on a low sodium diet. * Continue aspirin 81mg daily. Continue his statin. * Okay for discharge from a cardiac standpoint with follow up in the office in one week. Continue telemetry? No
[2017-11-17] MEDS ORDERED: IBUPROFEN800 M1 PO (18:40)
[2017-11-17] MEDS ORDERED: NORVASC10 M1 PO (19:09)
[2017-11-17] MEDS ORDERED: LABETALOL HCL200 M1 PO (19:09)
[2017-11-17] MEDS ORDERED: OMEPRAZOLE20 M2 PO (19:09)
[2017-11-17] MEDS ORDERED: ATORVASTATIN CA40 M1 PO (19:09)
[2017-11-17] MEDS ORDERED: ASPIRIN81 M4 PO (19:09)
[2017-11-17] MEDS ORDERED: HYDROCHLOROTHIA25 M1 PO (19:09)
== END 2017-11-17 19:20 | DRG 305 ==
LOC: ERH 12:52 → 1NO 19:05 → ERHI 19:05 → ENRESERV 20:56 → ENTRNSPT 22:29 → EDTRNSPTSTS 22:33 → EDTRNSPT 22:33 → 1NO 22:39 → CMPTRNSPT 22:43 → 1NO 11-15 07:40
PROVIDERS: Internal Medicine Interventional Cardiology; Physician Assistant Medical; Student in an Organized Health Care Education/Training Program
PROC: 4A12XM4 Monitoring of Cardiac Stress, External Approach (ICD-10-PCS; principal; 2017-11-17)
PROC: 3E033HZ Introduction of Radioactive Substance into Peripheral Vein, Percutaneous Approach (ICD-10-PCS; 2017-11-17)
DX: I16.0 Hypertensive urgency (principal); I24.8 Other forms of acute ischemic heart disease; F17.210 Nicotine dependence, cigarettes, uncomplicated; E11.9 Type 2 diabetes mellitus without complications; Z79.4 Long term (current) use of insulin; E66.3 Overweight; Z68.29 Body mass index [BMI] 29.0-29.9, adult; Z79.82 Long term (current) use of aspirin; R94.31 Abnormal electrocardiogram [ECG] [EKG]; J45.909 Unspecified asthma, uncomplicated; D50.9 Iron deficiency anemia, unspecified; E78.5 Hyperlipidemia, unspecified
CPT/HCPCS: 1NSP; 36592; 71046; 78452; 80307; 82436; 83010; 93005; 93010; 93016; 93017; 93306; 96374; 96375; 99291; A9502; J0131; J0360; J1644; J3490; J7042